=== PATIENT | female | born 1940 | race African-American/Black ===

== ENCOUNTER 2017-01-19 23:47 | Emergency (ER) | payer MEDICARE ==
[~2017-01-19] VITALS: Ht 157.5 cm; Wt 84.1 kg
[~2017-01-19 23:47] MED LIST: ACTOS30 MG PO; AMARYL1 MG OR; AMARYL4 MG PO; ASPIRIN325 MG PO; BENAZEPRIL10 MG PO; CITALOPRAM20 MG PO; COREG6.25 MG PO; DETROL LA4 MG PO; DETROL1 MG OR; DILAUDID 2MG2 MG/TA1 PO; ELAVIL25 MG PO; FOLIC ACID1 MG PO; GABAPENTIN600 MG PO; HUMALOG 751000 UNITS SC; HYDROCO/APAP1 T10 PO; HYDROCO/APAP1 TA8 PO; KLOR-CON20 MEQ OR; LASIX 80 MG TAB80 M1 PO; LOPRESS HCT1 TAB OR; LOPRESSOR50 MG OR; LORTAB 1010 MG PO; MICRO-K10 MEQ PO; MULTI VIT OR; MULTIVITAMI1 PO; NEURONTIN100 MG OR; NIFEDIPINE60 MG PO; OXYCODO-APAP1 TAB OR; PERCOCET 5/325M1 TAB PO; PROCARDIA XL30 MG PO; RHEUMATREX2.5 MG PO; XANAX0.5 MG OR; XANAX0.5 MG PO
[2017-01-20 00:26] VITALS: BP 148/68
== END 2017-01-20 00:30 | disposition home or self-care (01) ==
LOC: ED 23:47
DX: R04.0 Epistaxis (principal); Z91.14 Patient's other noncompliance with medication regimen

== ENCOUNTER 2017-09-25 21:41 | Emergency (ER) | payer MEDICARE ==
[~2017-09-25] VITALS: Ht 157.5 cm; Wt 81.8 kg
[2017-09-25 23:47] VITALS: BP 159/70
== END 2017-09-26 | disposition home or self-care (01) ==
LOC: ED 21:41
DX: G89.29 Other chronic pain (principal); M54.5 Low back pain; M48.00 Spinal stenosis, site unspecified; M62.830 Muscle spasm of back

== ENCOUNTER 2018-02-11 13:54 | Inpatient (IN) | payer MEDICARE ==
[~2018-02-11] VITALS: Ht 157.5 cm; Wt 78.0 kg
[2018-02-11 14:41] LABS: IMMATURE GRANULOCYTES 0.3 % (0.0-1.0); MEAN CORPUSCULAR HGB 26.2 pG CALC (26.0-32.0); MEAN CORPUSCULAR HGB CONC 31.2 g/L CALC (32.0-36.0); NEUT# 9.97 thou/uL (2.00-7.15); RED BLOOD COUNT 3.78 mill/uL (4.20-5.60); RED CELL DISTRI WIDTH 15.9 % (11.5-15.5)
[2018-02-11 14:49] LABS: HEMATOCRIT 31.7 % (37.0-47.0); HEMOGLOBIN 9.9 g/dl (12.0-16.0); MEAN CELL VOLUME 83.9 fL CALC (80.0-100.0)
[2018-02-11 15:07] LABS: ALBUMIN 3.6 g/dL (3.2-5.0); ALKALINE PHOSPHATASE 110 u/l (38-126); ANION GAP 18 (6-22 (CALC)); BILIRUBIN, TOTAL 0.5 mg/dL (0.0-1.4); BUN 16 mg/dL (8-23); BUN/CREATININE RATIO 11 (12-20 (CALC)); CARBON DIOXIDE 29 mmol/l (22-30); CHLORIDE 98 mmol/l (95-108); CREATININE 1.4 mg/dL (0.5-1.0); GFR 37 ML/MIN (>=60 (CALC)); GFR FOR AFR.AMER. 44 ML/MIN (>=60 (CALC)); POTASSIUM 4.4 mmol/l (3.5-5.1); SGOT/AST 16 u/l (9-36); SGPT/ALT 17 u/l (11-66); SODIUM 141 mmol/l (137-146); TOTAL PROTEIN 8.7 g/dL (6.3-8.2)
[2018-02-11 15:20] LABS: MYOGLOBIN 40 ng/mL (0 - 62)
[2018-02-11 18:21] VITALS: BP 101/40
[2018-02-11 19:53] VITALS: BP 133/51
[2018-02-11 22:00] VITALS: BP 121/76
[2018-02-12 07:56] VITALS: BP 105/45
[2018-02-12 08:08] LABS: HEMATOCRIT 31.6 % (37.0-47.0); HEMOGLOBIN 9.5 g/dl (12.0-16.0); MEAN CELL VOLUME 85.9 fL CALC (80.0-100.0); MEAN CORPUSCULAR HGB 25.8 pG CALC (26.0-32.0); MEAN CORPUSCULAR HGB CONC 30.1 g/L CALC (32.0-36.0); RED BLOOD COUNT 3.68 mill/uL (4.20-5.60); RED CELL DISTRI WIDTH 15.9 % (11.5-15.5)
[2018-02-12 08:14] LABS: CREATININE 1.3 mg/dL (0.5-1.0); POTASSIUM 5.1 mmol/l (3.5-5.1)
[2018-02-12 11:17] LABS: URINE BILIRUBIN - DIPSTICK NEGATIVE (NEGATIVE); URINE BLOOD DIPSTICK NEGATIVE (NEGATIVE); URINE CLARITY CLEAR; URINE COLOR YELLOW; URINE GLUCOSE - DIPSTICK NEGATIVE (NEGATIVE); URINE KETONE NEGATIVE (NEGATIVE); URINE LEUK ESTERASE NEGATIVE (Negative); URINE NITRITE - DIPSTICK NEGATIVE (Negative); URINE PH 5.5 (4.5-8.0); URINE PROTEIN - DIPSTICK NEGATIVE (NEG-TRACE); URINE SPECIFIC GRAVITY 1.015; URINE UROBILINOGEN - DIPSTICK 0.2 E.U./dL (0.2)
[2018-02-12 13:13] VITALS: BP 98/50
== END 2018-02-12 15:12 | disposition short-term general hospital (02) | DRG 863 ==
LOC: ED 13:54 → ED-I 16:18 → ED 17:09 → MS2 17:10
PROVIDERS: Emergency Medicine; Nurse Practitioner; ADMIT Internal Medicine; ATTEND Internal Medicine
PROC: 0T9B70Z Drainage of Bladder with Drainage Device, Via Natural or Artificial Opening (ICD-10-PCS; principal; 2018-02-12)
DX: T81.4XXA Infection following a procedure, initial encounter (principal); N17.9 Acute kidney failure, unspecified; E11.22 Type 2 diabetes mellitus with diabetic chronic kidney disease; R15.9 Full incontinence of feces; I12.9 Hypertensive chronic kidney disease with stage 1 through stage 4 chronic kidney disease, or unspecified chronic kidney disease; N18.3 Chronic kidney disease, stage 3 (moderate); R41.0 Disorientation, unspecified; R32 Unspecified urinary incontinence; Y83.8 Other surgical procedures as the cause of abnormal reaction of the patient, or of later complication, without mention of misadventure at the time of the procedure
CPT/HCPCS: G0378

== ENCOUNTER 2019-05-16 12:08 | Emergency (ER) | payer MEDICARE ==
[~2019-05-16] VITALS: Ht 157.5 cm; Wt 80.0 kg
[2019-05-16] MEDS ORDERED: CITALOPRAM20 M1 PO (13:25)
[2019-05-16] MEDS ORDERED: LOPRESSOR25 MG PO (13:39)
[2019-05-16] MEDS ORDERED: AMIODARONE HCL200 MG PO (13:40)
[2019-05-16] MEDS ORDERED: ELIQUIS5 MG PO (13:40)
[2019-05-16 13:45] VITALS: BP 149/74
== END 2019-05-16 13:45 | disposition home or self-care (01) ==
LOC: ED 12:08
DX: F41.9 Anxiety disorder, unspecified (principal)

== ENCOUNTER 2022-02-10 10:40 | Emergency (ER) | payer MEDICARE ==
[~2022-02-10] VITALS: Ht 157.5 cm; Wt 75.0 kg
[~2022-02-10 10:40] MED LIST changes: +AMIODARONE HCL200 MG PO; +CITALOPRAM20 M1 PO; +ELIQUIS5 MG PO; +LOPRESSOR25 MG PO
[2022-02-10 12:33] VITALS: BP 171/76
[2022-02-10 12:46] VITALS: BP 170/77
[2022-02-10 13:00] VITALS: BP 178/78
[2022-02-10 13:15] VITALS: BP 154/77
[2022-02-10 13:31] VITALS: BP 147/90
== END 2022-02-10 14:00 | disposition home or self-care (01) ==
LOC: ED 10:40
DX: K08.89 Other specified disorders of teeth and supporting structures (principal); E11.9 Type 2 diabetes mellitus without complications; I10 Essential (primary) hypertension

== ENCOUNTER 2023-01-26 17:50 | Observation (INO) | payer MEDICARE ==
[2023-01-26] VITALS (14 sets, daily range): BP systolic 81–140; BP diastolic 33–68
[~2023-01-26] VITALS: Ht 157.5 cm; Wt 71.8 kg
--- NOTE | 2023-01-26 17:57 | NUR ---
PATIENT TO ROOM 9 VIA EMS
[2023-01-26 18:40] LABS: BASO% 0.2 % (0-3); EOS% 2.4 % (0-8); HEMATOCRIT 31.6 % (37.0-47.0); HEMOGLOBIN 9.9 g/dl (12.0-16.0); IMMATURE GRANULOCYTES 0.6 % (0.0-5.0); LYMPH% 11.3 % (15-41); MEAN CELL VOLUME 88.3 fL CALC (80.0-100.0); MEAN CORPUSCULAR HGB 27.7 pG CALC (26.0-32.0); MEAN CORPUSCULAR HGB CONC 31.3 g/dL CAL (32.0-36.0); MONO% 6.1 % (2-13); NEUT# 7.56 thou/uL (2.00-7.15); NEUT% 79.4 % (42-76); RED BLOOD COUNT 3.58 mill/uL (4.20-5.60); RED CELL DISTRI WIDTH 15.8 % (11.5-15.5)
[2023-01-26 18:45] LABS: ALBUMIN 3.4 g/dL (3.2-5.0); ALKALINE PHOSPHATASE 131 u/l (38-126); ANION GAP 10 (6-22 (CALC)); BILIRUBIN, TOTAL 0.3 mg/dL (0.02-1.3); BUN 24 mg/dL (8-23); BUN/CREATININE RATIO 11 (12-20 (CALC)); CARBON DIOXIDE 26 mmol/l (22-30); CHLORIDE 105 mmol/l (95-108); CREATININE 2.2 mg/dL (0.5-1.0); GFR FOR AFR.AMER. 26 ML/MIN (>=60 (CALC)); GFR OTHER RACES 21 ML/MIN (>=60 (CALC)); POTASSIUM 4.8 mmol/l (3.5-5.1); SGOT/AST 20 u/l (9-36); SODIUM 137 mmol/l (137-146); TOTAL PROTEIN 7.3 g/dL (6.3-8.2)
[2023-01-26] MEDS ORDERED: OXYBUTYNIN CHLO15 MG PO (20:06)
[2023-01-26] MEDS ORDERED: LOPRESSOR 550 MG/TAB PO (20:07)
[2023-01-26] MEDS ORDERED: BUMETANIDE2 MG PO (20:08)
[2023-01-26] MEDS ORDERED: MYRBETRIQ50 MG PO (20:08)
[2023-01-26] MEDS ORDERED: NEURONTIN600 MG PO (20:09)
--- NOTE | 2023-01-26 21:35 | NUR ---
REPORT RECEIVED FROM ER NURSE.
--- NOTE | 2023-01-26 21:40 | NUR ---
REPORT GIVEN TO [facility]
--- NOTE | 2023-01-26 22:00 | NUR ---
PATIENT ARRIVED VIA STRETCHER ACCOMPANIED BY ED STAFF. AT BEDSIDE.
--- NOTE | 2023-01-26 22:00 | NUR ---
PATIENT ALERT AND ORIENTED TO SELF AT THIS TIME. PATIENT TRANSFERRED OVER TO BED WITH ASSITANCE X3 PROVIDED. PATIENT WASHED UP. SOILED BRIEF PULLUP NOTED TO HAVE MUTIPLE PANTY LINERS ON TOP OF THE BRIEF. BOTTOM RED WITH MUTIPLE SMALL SORES, OPEN AND PINK, ABDOMINAL FOLDS AND UNDER BILATERAL BREASTS, EXCORIATED AND SEEPING, EXCORATEION TO GROIN AND PRIVATES MALODOROUS. SMALL SCABS NOTED TO BILATERAL LEGS AND FEET. LOWER EXTREMITIES SWOLLEN +2-+3. PATIENT HAS ACRYLIC NAILS ON HANDS AND FEET, NAILS ARE BROKEN AND CHIPPED. PATIENT UNABLE TO ROLL, STATES SHE IS NOT IN PAIN, BUT GRIMACES AND YELLS WHEN TURNED. PER SPOUSE PATIENT DOES NOT LIKE TAKING PAIN PILLS, FOR FEAR OF BECOMING ADDICTED. PATIENTS SPOUSE IS HER PRIMARY TILE FITTER WHO STATES SHE CAN USUALLY WALK WITH A WALKER.
[2023-01-27] VITALS (8 sets, daily range): BP systolic 88–127; BP diastolic 32–54
--- NOTE | 2023-01-27 04:30 | NUR ---
PATIENT WASHED UP THIS AM. CONTINUES TO REFUSE MEDICATIONS FOR PAIN. PATIENT RESISTANT TO CARE. BED ALARM ON FOR SAFETY. AT BEDSIDE.
--- NOTE | 2023-01-27 08:00 | NUR ---
PT RESTING IN BED WATCHING TV WITH FAMILY MEMBERS AT BEDSIDE. ASSESSMENT COMPLETED. TELE MONITOR INPLACE, CONTINOUS MONITORING PER ED. UPDATED PT/FAMILY MEMBER IN CURRENT PLAN OF CARE. PT INIDCATED UNDERSTANDING. FALL/SAFTEY PRECAUTION IN PLACE. CALL LIGHT WITHIN REACH
--- NOTE | 2023-01-27 12:00 | NUR ---
PT FAMILY MEMBER AT BEDSIDE. PT RESTING WATCHING TV. PURWICK IN PLACE, SHOWING YELLOW URINE. NG TUBE REMOVED. HERNANDEZ REMOVED. PT HAS VOIDED. TELE MONITR IN PLACE, CONTINOUS MONTIORING PER ED.FALL/SAFTEY PRECAUTION IN PLACE. CALL LIGHT WITHIN REACH
[2023-01-27 12:15] LABS: URINE BILIRUBIN - DIPSTICK NEGATIVE (NEGATIVE); URINE BLOOD DIPSTICK TRACE-INTACT (NEGATIVE); URINE COLOR YELLOW; URINE GLUCOSE - DIPSTICK NEGATIVE (NEGATIVE); URINE KETONE NEGATIVE (NEGATIVE); URINE PH 6.5 (4.5-8.0); URINE PROTEIN - DIPSTICK NEGATIVE (NEG-TRACE); URINE UROBILINOGEN - DIPSTICK 0.2 E.U./dL (0.2)
[2023-01-27 12:18] LABS: URINE EPITHELIAL CELLS FEW EPI/hpf (0-FEW); URINE LEUK ESTERASE MODERATE (NEGATIVE); URINE NITRITE - DIPSTICK POSITIVE (Negative); URINE RBC 0-2 RBC/hpf (0-5)
[2023-01-27 12:19] LABS: URINE BACTERIA MANY hpf
--- NOTE | 2023-01-27 15:00 | NUR ---
PT BLADDER SCANNED. SCANNER SHOWED 900CC MGMT SPECIALIST NOTFIED. PT ENOCURAGED URINATION. EDUCATED ON URINARY RETENTION.
--- NOTE | 2023-01-27 15:30 | NUR ---
PT VOIDED 700 CC URINE
--- NOTE | 2023-01-27 16:30 | NUR ---
PT REFUSING MEDICATION. PT EDUCATED ON PLAN OF CARE AND RISKD OF NOT TAKING ANTIBIOTIC MEDICATION. PT CONTINUES TO REFUSE. NOTFIED. BED ALARM ACTIVATED. FALL/SAFETY PRECAUTIONI NPLACE. CALL LIGHT WITHIN REACH
--- NOTE | 2023-01-27 17:00 | NUR ---
PT REFUSED PURWICK PLACEMENT. EDUCATED ON STRICT INTAKE AND OUTPUT. PT COTNINUES TO REFUSE MD AWARE. FALL/SAFETY PRECAUTION IN PLACE. CALL LIGHT WITHIN REACH.
--- NOTE | 2023-01-27 19:35 | NUR ---
Report received from Zofia Turcios Rn.
--- NOTE | 2023-01-27 19:45 | NUR ---
PATIENT RESTING SOUNDLY, AT BEDSIDE. RESPIRATIONS EVEN AND UNLABORED, NO APPARENT DISTRESS NOTED. CALL LIGHT AND BEDSIDE TABLE WITHIN REACH. BED ALARM ON FOR SAFETY.
--- NOTE | 2023-01-27 23:45 | NUR ---
PATIENT AWAKE AND PLEASANT, WILLING TO TAKE MEDICATION AT THIS TIME. ABLE TO SWALLOW PILLS WHOLE. CALL LIGHT AND BEDSIDE TABLE WITHIN REACH. BED ALARM ON FOR SAFETY.
[2023-01-28] VITALS (8 sets, daily range): BP systolic 113–153; BP diastolic 44–60
--- NOTE | 2023-01-28 04:42 | NUR ---
PATIENT RESTING, RESPIRATIONS EVEN AND UNLABORED. CALL LIGHT AND BEDSIDE TABLE WITHIN REACH. REMAINS AT BEDSIDE.
--- NOTE | 2023-01-28 05:35 | NUR ---
patient cant stand and can not be lifted in a sling for a dulce lift so had to use bed scale
--- NOTE | 2023-01-28 07:00 | NUR ---
RECEIVE REPORT FROM DANIELLE SILVERMAN.
[2023-01-28 07:10] LABS: BASO% 0.5 % (0-3); EOS% 5.6 % (0-8); HEMATOCRIT 30.4 % (37.0-47.0); HEMOGLOBIN 9.4 g/dl (12.0-16.0); IMMATURE GRANULOCYTES 0.9 % (0.0-5.0); LYMPH% 18.6 % (15-41); MEAN CELL VOLUME 90.7 fL CALC (80.0-100.0); MEAN CORPUSCULAR HGB 28.1 pG CALC (26.0-32.0); MEAN CORPUSCULAR HGB CONC 30.9 g/dL CAL (32.0-36.0); MONO% 9.3 % (2-13); NEUT# 7.18 thou/uL (2.00-7.15); NEUT% 65.1 % (42-76); RED BLOOD COUNT 3.35 mill/uL (4.20-5.60); RED CELL DISTRI WIDTH 15.8 % (11.5-15.5)
[2023-01-28 07:27] LABS: BILIRUBIN, TOTAL 0.3 mg/dL (0.02-1.3); POTASSIUM 4.6 mmol/l (3.5-5.1)
[2023-01-28 07:52] LABS: ALBUMIN 2.7 g/dL (3.2-5.0)
--- NOTE | 2023-01-28 08:00 | NUR ---
ALERT AND ORIENTED PATIENT X1. IT IS OBSERVED RESTING IN THE BED. PATIENT CONNECTED TO TELE MONITOR. SINUS RHYTHM AT THE TIME OF THIS NOTE. PATIENT REFERS NO PAIN OR DISCOMFORT AT THIS TIME. THE PATIENT IS EDUCATED AND ORIENTED ABOUT THE NURSING PLAN FOR TODAY AND MEDICATIONS. PATIENT REFERS TO UNDERSTAND. SAFETY AND FALL PRECAUTIONS IN PLACE. CALL LIGHT WITHIN IN REACH.
--- NOTE | 2023-01-28 10:01 | NUR ---
PT WAS ASKED IF SHE WOULD LIKE TO SHOWER PT STATED NOT WITH A MALE, I BROUGHT A FEMALE BOTTLING MACHINE OPERATOR TO ASSIST. PT THEN LATER STATED SHE DOES NOT WANT NEITHER OF US TO ASSIST HER, PT STATED SHE IS NOT WET EVEN THOUGH THEIR IS VISIBLE INDICATION OF WETNESS. PT STATED IF THE FEMALE BOTTLING MACHINE OPERATOR WERE TO HELP HER SHE WOULD SCREAM AND PUNCH HER. PT WAS EDUCATED ABOUT THE RISKS OF NOT HAVING A BATH AND NOT GETTING CHANGED PT STILL REFUSED. NURSE NOTIFIED. PT CARE ONGOING.
--- NOTE | 2023-01-28 12:00 | NUR ---
PATIENT STABLE AT THE TIME OF THIS NOTE. IT IS OBSERVED RESTING IN THE BED. PATIENT CONNECTED TO TELE MONITOR. SINUS RHYTHM AT THE TIME OF THIS NOTE. PATIENT REFERS NO PAIN OR DISCOMFORT. THE PATIENT IS EDUCATED AND ORIENTED ABOUT THE NURSING PLAN FOR TODAY AND MEDICATIONS. PATIENT REFERS TO UNDERSTAND.
--- NOTE | 2023-01-28 16:36 | NUR ---
PATIENT RESTING STABLE AT THIS TIME. SAFETY AND FALL PRECAUTIONS IN PLACE. CALL LIGHT WITHIN IN REACH.
--- NOTE | 2023-01-28 19:54 | NUR ---
BEDSIDE REPORT RECEIVED FROM OFF GOING NURSE. PATIENT AGITATED AND DIFFICULT TO REDIRECT AT THIS TIME. NOTED TO YELL OUT FOR HELP BUT ALSO USES CALL LIGHT. REASSURED AND SNACK OFFERED. DENIES PAIN OR DISCOMFORT. EXPRESSES DESIRE TO "GET UP OUT OF HERE". SAFETY MEASURES IN PLACE.
[2023-01-29] VITALS (8 sets, daily range): BP systolic 91–142; BP diastolic 36–53
--- NOTE | 2023-01-29 02:38 | NUR ---
PATIENT IN BED TALKATIVE AND CONFUSED. PATIENT REFUSED TO HAVE MIDNIGHT VITALS TAKEN X3 ATTEMPTS. UNABLE TO BE REDIRECTED. SNACK OFFERED AND CHECKED FOR INCONTINENCE. SAFETY MEASURES IN PLACE. CALL WITHIN REACH.
--- NOTE | 2023-01-29 07:38 | NUR ---
RECEIVE REPORT FROM ALYCIA SILVERMAN.
--- NOTE | 2023-01-29 08:00 | NUR ---
ALERT AND ORIENTED PATIENT X1. IT IS OBSERVED RESTING IN THE BED. DAUGHTER AT BED SIDE PATIENT CONNECTED TO TELE MONITOR. SINUS RHYTHM AT THE TIME OF THIS NOTE. PATIENT REFERS NO PAIN OR DISCOMFORT AT THIS TIME. THE PATIENT IS EDUCATED AND ORIENTED ABOUT THE NURSING PLAN FOR TODAY AND MEDICATIONS. PATIENT REFERS TO UNDERSTAND. SAFETY AND FALL PRECAUTIONS IN PLACE. CALL LIGHT WITHIN IN REACH.
[2023-01-29 08:44] LABS: BASO% 0.3 % (0-3); EOS% 4.5 % (0-8); HEMATOCRIT 33.1 % (37.0-47.0); HEMOGLOBIN 10.4 g/dl (12.0-16.0); IMMATURE GRANULOCYTES 0.8 % (0.0-5.0); LYMPH% 20.7 % (15-41); MEAN CELL VOLUME 89.2 fL CALC (80.0-100.0); MEAN CORPUSCULAR HGB CONC 31.4 g/dL CAL (32.0-36.0); MONO% 9.7 % (2-13); NEUT# 7.38 thou/uL (2.00-7.15); RED BLOOD COUNT 3.71 mill/uL (4.20-5.60); RED CELL DISTRI WIDTH 15.6 % (11.5-15.5)
[2023-01-29 08:55] LABS: BILIRUBIN, TOTAL 0.4 mg/dL (0.02-1.3); CREATININE 2.1 mg/dL (0.5-1.0); MAGNESIUM 1.9 mg/dL (1.6-2.3)
[2023-01-29 08:56] LABS: ALBUMIN 3.4 g/dL (3.2-5.0); TOTAL PROTEIN 7.6 g/dL (6.3-8.2)
--- NOTE | 2023-01-29 11:22 | NUR ---
Pt resting in bed with body angled with feet towards L side of bed. Offered to correct position but pt refused. Attempted ROM ex and again she refused. No treatment given today.
--- NOTE | 2023-01-29 16:13 | NUR ---
Patient stable resting in bed.
--- NOTE | 2023-01-29 16:41 | NUR ---
Attempted OT intervention. Pt sleeping soundly with present in the room.
--- NOTE | 2023-01-29 19:56 | NUR ---
BEDSIDE REPORT RECEIVED FROM OFF GOING NURSE. PATIENT ASLEEP IN BED. RESPIRATINS EVEN AND UNLABORED ON ROOM AIR. SAFETY MEASURES IN PLACE.
--- NOTE | 2023-01-29 23:49 | NUR ---
PATIENT LAYING IN BED AWAKE AND TALKATIVE. DENIES PAIN OR DISCOMFORT. SAFETY MEASURES IN PLACE. RESPIRATIONS EVEN AND UNLABORED ON ROOM AIR.
--- NOTE | 2023-01-30 02:15 | NUR ---
PATIENT IN BED RESTING WITH EYES CLOSED. RESPIRATIONS EVEN AND UNLABORED. SAFETY MEASURES IN PLACE. CALL LIGHT WITHIN REACH.
[2023-01-30 04:11] VITALS: BP 110/37
--- NOTE | 2023-01-30 04:46 | NUR ---
pt is unable to stand on digital standing scale or dulce lift due to fracture. nurse tobias notified of bed scale.
[2023-01-30 06:59] VITALS: BP 116/40
--- NOTE | 2023-01-30 07:48 | NUR ---
PERFORMED BEDSIDE REPORT WITH NIGHTSHIFT NURSE. PT NOTED LAYING SEMI FOWLERS IN BED. PT IS ALERT TO SELF ONLY. PT MOOD AT THIS TIME IS PLEAENT. PT IS DISORIENTED AND CONFUSED. REORIENTING PT WILL NEED REINFORCED. PT DENIES ANY PAIN AT THIS TIME. PT ON ROOM AIR. CALL LIGHT WITHIN REACH AND SAFETY PRECAUTIONS IN PLACE.
[2023-01-30 10:00] VITALS: BP 103/40
[2023-01-30 10:39] LABS: BASO% 0.3 % (0-3); EOS% 5.2 % (0-8); HEMATOCRIT 30.4 % (37.0-47.0); HEMOGLOBIN 9.8 g/dl (12.0-16.0); IMMATURE GRANULOCYTES 0.5 % (0.0-5.0); LYMPH% 16.5 % (15-41); MEAN CELL VOLUME 88.4 fL CALC (80.0-100.0); MEAN CORPUSCULAR HGB 28.5 pG CALC (26.0-32.0); MEAN CORPUSCULAR HGB CONC 32.2 g/dL CAL (32.0-36.0); NEUT# 8.26 thou/uL (2.00-7.15); NEUT% 70.5 % (42-76); RED BLOOD COUNT 3.44 mill/uL (4.20-5.60); RED CELL DISTRI WIDTH 15.4 % (11.5-15.5)
[2023-01-30 11:21] LABS: BILIRUBIN, TOTAL 0.4 mg/dL (0.02-1.3); CREATININE 1.8 mg/dL (0.5-1.0); MAGNESIUM 1.8 mg/dL (1.6-2.3); TOTAL PROTEIN 6.7 g/dL (6.3-8.2)
[2023-01-30 11:32] LABS: POTASSIUM 4.9 mmol/l (3.5-5.1)
--- NOTE | 2023-01-30 12:00 | NUR ---
PT SITTING UP FOWLERS IN BED EATING LUNCH, AT BEDSIDE. PT HAS BEEN COMPLIANT AND PLEASENT THROUGHOUT MORNING. DENIES ANY PAIN AT THIS TIME. PT IS ALERT OT SELF BUT STILL SHOWS SIGNS OF CONFUSIONS AND DISORIENTATION. CALL LIGHT WITHIN REACH AND SAFETY PRECAUTIONS IN PLACE.
--- NOTE | 2023-01-30 14:19 | NUR ---
patient was checked for incontinence. by link fabric machine operator, and nurse patient was not wet. patient being combative towards staff refuse to get repositioned.
--- NOTE | 2023-01-30 14:23 | NUR ---
ASSISTED PATIENT CARE ASSISTANT WITH CHANGING AND CLEANING UP PT. PT BECAME SLIGHTLY COMBATIVE DURING PROCESS. REINFORCED REORIENTATION. PT LAYING FOWLERS IN BED NOW, BED ALARM IS ON. CALL LIGHT WITHIN REACH AND SAFETY PRECAUTIONS IN PLACE.
--- NOTE | 2023-01-30 14:30 | NUR ---
nurse aware, patient refused to let staff do her vital signs.
--- NOTE | 2023-01-30 17:09 | NUR ---
PT LAYING IN BED. FAMILY IN ROOM WITH PT. PT HAS STARTED TO BECOME MORE AGITATED AND COMBATIVE AT THIS TIME. PULLING TELE MONITOR OFF AND REFUSING MEDICATIONS. CONTIUING TO REORIENT. CALL LIGHT WITHIN REACH AND SAFETY PRECAUTIONS IN PLACE.
--- NOTE | 2023-01-30 19:33 | NUR ---
Patient refused blood pressure and the nurse was notified.
--- NOTE | 2023-01-30 20:02 | NUR ---
REPORT RECEIVED FROM OFF GOING NURSE. PATIENT RESTING IN BED. DENIES PAIN OR DISCOMFORT. OFFERED PATIENT A SODA THAT WAS AT HER BEDSIDE AND SHE IS CURRENTLY DRINKING. MOOD IS CALM. FAMILY AT BEDISDE AT START OF SHIFT. SAFETY MEASURES IN PLACE. CALL LIGHT WITHIN REACH.
--- NOTE | 2023-01-30 23:03 | NUR ---
PATIENT IN BED AWAKE AT THIS TIME. DENIES PAIN OR DISCOMFORT. SAFETY MEASURES MAINTAINED. CALL LIGHT WITHIN REACH.
[2023-01-31] VITALS (10 sets, daily range): BP systolic 103–135; BP diastolic 31–69
[2023-01-31 05:45] LABS: BASO% 0.5 % (0-3); EOS% 4.3 % (0-8); HEMOGLOBIN 10.1 g/dl (12.0-16.0); IMMATURE GRANULOCYTES 0.5 % (0.0-5.0); LYMPH% 20.2 % (15-41); MEAN CELL VOLUME 87.6 fL CALC (80.0-100.0); MEAN CORPUSCULAR HGB 28.5 pG CALC (26.0-32.0); MEAN CORPUSCULAR HGB CONC 32.6 g/dL CAL (32.0-36.0); MONO% 10.7 % (2-13); NEUT# 7.02 thou/uL (2.00-7.15); NEUT% 63.8 % (42-76); RED BLOOD COUNT 3.54 mill/uL (4.20-5.60); RED CELL DISTRI WIDTH 15.5 % (11.5-15.5)
[2023-01-31 06:15] LABS: ALBUMIN 3.3 g/dL (3.2-5.0); BILIRUBIN, TOTAL 0.4 mg/dL (0.02-1.3); CREATININE 2.1 mg/dL (0.5-1.0); POTASSIUM 4.1 mmol/l (3.5-5.1); TOTAL PROTEIN 7.5 g/dL (6.3-8.2)
--- NOTE | 2023-01-31 07:28 | NUR ---
PT RESTING IN BED. ALL SAFETY MEASURES IN PLACE. VSS. NO NEEDS AT THIS TIME. PT AOx1.
--- NOTE | 2023-01-31 07:50 | NUR ---
went in to take patient's vitals, but patient has refused. I told the nurse on day shift and she said ok. will attempt again later
--- NOTE | 2023-01-31 12:00 | NUR ---
PT RESTING COMFORTABLY. VSS. NO NEEDS AT THIS TIME. FAMILY AT BEDSIDE.
--- NOTE | 2023-01-31 17:01 | NUR ---
PT RESTING COMFORTABLY. VSS. NO NEEDS AT THIS TIME. FAMILY AT BEDSIDE.
--- NOTE | 2023-01-31 20:06 | NUR ---
patient glucose level read 110 nurse aware
--- NOTE | 2023-01-31 20:15 | NUR ---
PATIENT RESTING COMOFORTABLY, NO APPARENT DISTRESS NOTED. RESPIRATIONS EVEN AND UNLABORED, CALL LIGHT AND BEDSIDE TABLE WITHIN REACH. BED ALARM ON FOR SAFETY.
--- NOTE | 2023-01-31 23:00 | NUR ---
PATIENT REFUSED MEDICATIONS TONIGHT. 2ND ATTEMPT
--- NOTE | 2023-02-01 04:00 | NUR ---
PATIENT RESTING COMOFORTABLY, NO APPARENT DISTRESS NOTED. RESPIRATIONS EVEN AND UNLABORED, CALL LIGHT AND BEDSIDE TABLE WITHIN REACH. BED ALARM ON FOR SAFETY.
[2023-02-01 04:27] VITALS: BP 104/34
[2023-02-01 05:26] VITALS: BP 104/34
--- NOTE | 2023-02-01 05:26 | NUR ---
patient glucuse level read 83, provided patient orange juice and nurse aware
[2023-02-01 05:30] LABS: BASO% 0.4 % (0-3); EOS% 4.3 % (0-8); HEMATOCRIT 33.7 % (37.0-47.0); HEMOGLOBIN 10.6 g/dl (12.0-16.0); IMMATURE GRANULOCYTES 0.9 % (0.0-5.0); LYMPH% 32.1 % (15-41); MEAN CELL VOLUME 89.4 fL CALC (80.0-100.0); MEAN CORPUSCULAR HGB 28.1 pG CALC (26.0-32.0); MEAN CORPUSCULAR HGB CONC 31.5 g/dL CAL (32.0-36.0); MONO% 9.3 % (2-13); NEUT# 5.46 thou/uL (2.00-7.15); RED BLOOD COUNT 3.77 mill/uL (4.20-5.60); RED CELL DISTRI WIDTH 15.4 % (11.5-15.5)
[2023-02-01 05:46] LABS: ALBUMIN 3.6 g/dL (3.2-5.0); BILIRUBIN, TOTAL 0.4 mg/dL (0.02-1.3); CREATININE 2.5 mg/dL (0.5-1.0); POTASSIUM 4.2 mmol/l (3.5-5.1); TOTAL PROTEIN 8.1 g/dL (6.3-8.2)
[2023-02-01 06:59] VITALS: BP 122/47
--- NOTE | 2023-02-01 07:33 | NUR ---
PT RESTING IN BED. ALL SAFETY MEASURES IN PLACE. NO NEEDS AT THIS TIME. VSS
[2023-02-01 15:44] VITALS: BP 123/39
[2023-02-01 19:23] VITALS: BP 141/50
--- NOTE | 2023-02-01 19:23 | NUR ---
SBAR RECEIVED FROM HERRERA VALENTIN. PATIENT AWAKE IN BED WATCHING TV, SPOUSE AT BEDSIDE. NO DISTRESS NOTED. NO CONCERNS EXPRESSED. CALL LIGHT WITHIN REACH.
--- NOTE | 2023-02-01 19:55 | NUR ---
PATIENT SATURATED IN URINE, ATTEMPT TO WASH AND CHANGE LINEN. PATIENT REFUSED STATING "LEAVE ME I AM, CALL AN AMBULANCE TO TAKE ME HOME". SPOUSE AT BEDSIDE AND REQUEST THAT NURSE COME BACK AFTER PATIENT HAS CALMED DOWN.
[2023-02-01 21:11] VITALS: BP 132/47
--- NOTE | 2023-02-01 21:21 | NUR ---
PATIENT VERY ARGUMENTATIVE AT THIS TIME. PATIENT ALSO REFUSES ALL MEDS AT THIS TIME AND STATES "I KNOW MY RIGHTS AND DON'T HAVE TO TAKE ANYTHING". PATIENT CONTINUES TO LAY IN URINE AND REFUSE TO GET CLEANED.
[2023-02-02 00:21] VITALS: BP 133/47
--- NOTE | 2023-02-02 00:55 | NUR ---
RESTING QUIETLY EYES CLOSED. NO DISTRESS NOTED. SPOUSE AT BEDSIDE. CALL LIGHT WITHIN REACH.
[2023-02-02 04:12] VITALS: BP 128/46
--- NOTE | 2023-02-02 04:28 | NUR ---
RESTING EYES CLOSED. VSS ONTAINED, STABLE. NO DISTRESS NOTED. CALL LIGHT WITHIN REACH. SPOUSE AT BEDSIDE.
[2023-02-02 05:54] LABS: BASO% 0.5 % (0-3); EOS% 3.3 % (0-8); HEMOGLOBIN 9.9 g/dl (12.0-16.0); IMMATURE GRANULOCYTES 0.6 % (0.0-5.0); LYMPH% 22.2 % (15-41); MEAN CELL VOLUME 88.8 fL CALC (80.0-100.0); MEAN CORPUSCULAR HGB 28.4 pG CALC (26.0-32.0); MEAN CORPUSCULAR HGB CONC 31.9 g/dL CAL (32.0-36.0); MONO% 9.3 % (2-13); NEUT# 6.93 thou/uL (2.00-7.15); NEUT% 64.1 % (42-76); RED BLOOD COUNT 3.49 mill/uL (4.20-5.60); RED CELL DISTRI WIDTH 15.5 % (11.5-15.5)
[2023-02-02 06:13] LABS: ALBUMIN 3.3 g/dL (3.2-5.0); CREATININE 2.3 mg/dL (0.5-1.0); POTASSIUM 3.9 mmol/l (3.5-5.1); TOTAL PROTEIN 7.5 g/dL (6.3-8.2)
[2023-02-02 06:16] LABS: BILIRUBIN, TOTAL 0.2 mg/dL (0.02-1.3)
[2023-02-02 07:06] VITALS: BP 127/52
[2023-02-02 08:03] VITALS: BP 127/52
--- NOTE | 2023-02-02 09:30 | NUR ---
PT REFUSING MEDICATIONS. EDUCATED PT IN PLAN OF CARE/ MEDICATIONS. PT REFUSES. PT ALLOWED LUNG/HEART AUSCULATIONS. PEDAL AND RADIAL PULSE STRONG. REFUSED FURTHER ASSESMENT. TELE MONITOR IN PLACE. CONTINOUS MONITORING PER ED.
--- NOTE | 2023-02-02 10:22 | NUR ---
PT CONTINUES TO REFUSE MEDICATION. REINFORCED EDUCATION. PT CONITNUES TO REFUSE. FALL/SAFTEY PRECAUTIO VIKTOR PLACE. CALL LIGHT WITHIN REACH.
[2023-02-02] MEDS ORDERED: CEPHALEXIN500 MG PO (11:20)
[2023-02-02] MEDS ORDERED: QUETIAPINE FUMA25 MG PO (11:21)
--- NOTE | 2023-02-02 11:22 | NUR ---
pt refused 1200 accu check
--- NOTE | 2023-02-02 11:22 | NUR ---
Per nursing pt agitated this am, not taking meds. Treatment held.
[2023-02-02 11:26] VITALS: BP 115/61
--- NOTE | 2023-02-02 12:00 | NUR ---
ATTEMPT MADE FOR SCHEDULED MEDICATIONS. PT REFUSES. REORIENTATED PT TO ROOM AND CALL HERNANDEZ., REINFORCED MEDICATION EDUCATION. PT CONTINUES TO REFUSE. MD/HYDRAULIC MECHANIC NOTIFIED/AWARE. FALL/SAFTEY PRECAUTION IN PLACE. CALL LIGHT WITHIN REACH.
--- NOTE | 2023-02-02 13:37 | NUR ---
Pt ID verified. Clinician attempted to provide OT intervention. Pt refused. Resting comfortably with call carrera within reach.
[2023-02-02 14:53] VITALS: BP 127/53
--- NOTE | 2023-02-02 15:52 | NUR ---
PT REFUSES MEDICATION AND ACCUCHECK . EDUCATED PT ON MEDICATION AND ACCUCHECKS. PT REFUSES. BREATHING EVEN AND UNLABORED. FALL/SAFTEY PRECAUTION I NPLACE. CALL LIGHT WITHIN REACH.
--- NOTE | 2023-02-02 16:47 | NUR ---
PT FAMILY QUESTIONED ABOUT FACILITY. NOTIFIED TRACK WATCHMAN TO RESOLVE ISSUE . UPON WALKING BACK TO ROOM PT FAMILY HAS TAKEN THE PT OUT OF MED SURGE UNIT WITHOUT NOTICE.
== END 2023-02-02 16:47 ==
LOC: ED 17:50 → MS2 20:04
PROVIDERS: Internal Medicine; Nurse Practitioner; Nurse Practitioner Family; ADMIT Internal Medicine; ATTEND Internal Medicine
DX: N39.0 Urinary tract infection, site not specified (principal); G93.40 Encephalopathy, unspecified; S32.020A Wedge compression fracture of second lumbar vertebra, initial encounter for closed fracture; N17.9 Acute kidney failure, unspecified; I13.0 Hypertensive heart and chronic kidney disease with heart failure and stage 1 through stage 4 chronic kidney disease, or unspecified chronic kidney disease; I50.9 Heart failure, unspecified; E11.22 Type 2 diabetes mellitus with diabetic chronic kidney disease; N18.9 Chronic kidney disease, unspecified; G31.84 Mild cognitive impairment of uncertain or unknown etiology; I25.10 Atherosclerotic heart disease of native coronary artery without angina pectoris; B96.20 Unspecified Escherichia coli [E. coli] as the cause of diseases classified elsewhere; W01.0XXA Fall on same level from slipping, tripping and stumbling without subsequent striking against object, initial encounter; Y92.009 Unspecified place in unspecified non-institutional (private) residence as the place of occurrence of the external cause; Z98.1 Arthrodesis status
CPT/HCPCS: S0166

== ENCOUNTER 2023-03-06 17:06 | Inpatient (IN) | payer MEDICARE ==
[~2023-03-06] VITALS: Ht 157.5 cm; Wt 81.0 kg
[2023-03-06] VITALS (64 sets, daily range): BP systolic 48–148; BP diastolic 21–134
[~2023-03-06 17:06] MED LIST changes: +BUMETANIDE2 MG PO; +CEPHALEXIN500 MG PO; +LOPRESSOR 550 MG/TAB PO; +MYRBETRIQ50 MG PO; +NEURONTIN600 MG PO; +OXYBUTYNIN CHLO15 MG PO; +QUETIAPINE FUMA25 MG PO
[2023-03-06 17:48] LABS: HEMOGLOBIN 11.3 g/dl (12.0-16.0); IMMATURE GRANULOCYTES 0.6 % (0.0-5.0); LYMPH% 5.7 % (15-41); MEAN CELL VOLUME 89.1 fL CALC (80.0-100.0); MEAN CORPUSCULAR HGB CONC 31.4 g/dL CAL (32.0-36.0); NEUT# 18.04 thou/uL (2.00-7.15); NEUT% 89.7 % (42-76); RED BLOOD COUNT 4.04 mill/uL (4.20-5.60); RED CELL DISTRI WIDTH 16.5 % (11.5-15.5)
[2023-03-06 18:00] LABS: ALBUMIN 3.3 g/dL (3.2-5.0); CREATININE 3.1 mg/dL (0.5-1.0); POTASSIUM 4.3 mmol/l (3.5-5.1); TOTAL PROTEIN 7.7 g/dL (6.3-8.2)
[2023-03-06 18:02] LABS: BILIRUBIN, TOTAL 0.6 mg/dL (0.02-1.3)
[2023-03-07] VITALS (138 sets, daily range): BP systolic 72–266; BP diastolic 38–242
[2023-03-07 02:30] LABS: URINE BILIRUBIN - DIPSTICK NEGATIVE (NEGATIVE); URINE COLOR YELLOW; URINE GLUCOSE - DIPSTICK NEGATIVE (NEGATIVE); URINE KETONE NEGATIVE (NEGATIVE); URINE LEUK ESTERASE SMALL (NEGATIVE); URINE NITRITE - DIPSTICK NEGATIVE (Negative); URINE PH 5.5 (4.5-8.0); URINE PROTEIN - DIPSTICK NEGATIVE (NEG-TRACE); URINE UROBILINOGEN - DIPSTICK 0.2 E.U./dL (0.2)
[2023-03-07 02:31] LABS: URINE BACTERIA MANY hpf; URINE BLOOD DIPSTICK NEGATIVE (NEGATIVE); URINE EPITHELIAL CELLS MODERATE EPI/hpf (0-FEW); URINE YEAST MODERATE hpf
[2023-03-07 11:25] LABS: BASO% 0.1 % (0-3); EOS% 0.1 % (0-8); HEMATOCRIT 31.2 % (37.0-47.0); HEMOGLOBIN 9.6 g/dl (12.0-16.0); IMMATURE GRANULOCYTES 0.9 % (0.0-5.0); LYMPH% 9.3 % (15-41); MEAN CELL VOLUME 90.4 fL CALC (80.0-100.0); MEAN CORPUSCULAR HGB 27.8 pG CALC (26.0-32.0); MEAN CORPUSCULAR HGB CONC 30.8 g/dL CAL (32.0-36.0); MONO% 4.1 % (2-13); NEUT# 14.42 thou/uL (2.00-7.15); NEUT% 85.5 % (42-76); RED BLOOD COUNT 3.45 mill/uL (4.20-5.60); RED CELL DISTRI WIDTH 16.7 % (11.5-15.5)
[2023-03-07 11:36] LABS: ALBUMIN 2.8 g/dL (3.2-5.0); CREATININE 2.8 mg/dL (0.5-1.0); POTASSIUM 3.8 mmol/l (3.5-5.1); TOTAL PROTEIN 6.5 g/dL (6.3-8.2)
[2023-03-07 12:34] LABS: BILIRUBIN, TOTAL 0.3 mg/dL (0.02-1.3)
[2023-03-08] VITALS (80 sets, daily range): BP systolic 76–140; BP diastolic 37–94
[2023-03-08 05:48] LABS: HEMATOCRIT 28.4 % (37.0-47.0); HEMOGLOBIN 8.7 g/dl (12.0-16.0); MEAN CELL VOLUME 91.3 fL CALC (80.0-100.0); MEAN CORPUSCULAR HGB CONC 30.6 g/dL CAL (32.0-36.0); RED BLOOD COUNT 3.11 mill/uL (4.20-5.60); RED CELL DISTRI WIDTH 16.9 % (11.5-15.5)
[2023-03-08 06:01] LABS: ALBUMIN 2.4 g/dL (3.2-5.0); BILIRUBIN, TOTAL 0.4 mg/dL (0.02-1.3); CREATININE 2.4 mg/dL (0.5-1.0); POTASSIUM 3.9 mmol/l (3.5-5.1); TOTAL PROTEIN 5.8 g/dL (6.3-8.2)
[2023-03-09] VITALS (8 sets, daily range): BP systolic 96–131; BP diastolic 41–63
== END 2023-03-09 14:30 | disposition hospice, inpatient (51) | DRG 871 ==
LOC: ED 17:06 → ED-I 03-07 02:00 → ICU 03-07 02:20 → ED 03-07 02:20 → ICU 03-09 14:30
PROVIDERS: Family Medicine; ADMIT Internal Medicine; ATTEND Internal Medicine
PROC: 05HN33Z Insertion of Infusion Device into Left Internal Jugular Vein, Percutaneous Approach (ICD-10-PCS; principal; 2023-03-06)
PROC: 3E043XZ Introduction of Vasopressor into Central Vein, Percutaneous Approach (ICD-10-PCS; 2023-03-06)
PROC: 0T9B70Z Drainage of Bladder with Drainage Device, Via Natural or Artificial Opening (ICD-10-PCS; 2023-03-07)
DX: A41.9 Sepsis, unspecified organism (principal); G93.41 Metabolic encephalopathy; R65.21 Severe sepsis with septic shock; N17.9 Acute kidney failure, unspecified; F03.911 Unspecified dementia, unspecified severity, with agitation; N39.0 Urinary tract infection, site not specified; I95.9 Hypotension, unspecified; E11.22 Type 2 diabetes mellitus with diabetic chronic kidney disease; I12.9 Hypertensive chronic kidney disease with stage 1 through stage 4 chronic kidney disease, or unspecified chronic kidney disease; N18.31 Chronic kidney disease, stage 3a; I48.91 Unspecified atrial fibrillation; K80.20 Calculus of gallbladder without cholecystitis without obstruction; L89.212 Pressure ulcer of right hip, stage 2; L89.152 Pressure ulcer of sacral region, stage 2; E86.0 Dehydration; N32.89 Other specified disorders of bladder; Z66 Do not resuscitate; Z51.5 Encounter for palliative care; Z20.822 Contact with and (suspected) exposure to COVID-19
CPT/HCPCS: J2060; S0166